=== PATIENT | female | born 1990 | race Caucasian/White ===

== ENCOUNTER 2019-10-14 11:16 | Inpatient (IN) | payer MEDICAID, OTHER ==
[~2019-10-14] VITALS: Ht 154.9 cm; Wt 50.4 kg
[2019-10-14 22:52] VITALS: BP 102/59
[2019-10-15 06:05] VITALS: BP 116/59
[2019-10-15] MEDS ORDERED: ONDANSETRON HCL 4 MG TABLET PO PRN (07:00)
[2019-10-15] MEDS ORDERED: DOCUSATE SODIUM 100 MG CAPSULE PO PRN (07:00)
[2019-10-15] MEDS ORDERED: CloNIDine HCL 0.1 MG TABLET PO PRN (07:00)
[2019-10-15] MEDS ORDERED: LOPERAMIDE HCL 2 MG CAPSULE PO PRN (07:00)
[2019-10-15] MEDS ORDERED: ACETAMINOPHEN 325 MG TABLET PO PRN (07:00)
[2019-10-15] MEDS ORDERED: PETROLATUM,WHITE 28 GM JELLY TP PRN (07:00)
[2019-10-15] MEDS ORDERED: MAGNESIUM HYDROXIDE SUSPENSION 30 ML UDCUP PO PRN (07:00)
[2019-10-15] MEDS ORDERED: GuaiFENesin/D-METHORPHAN [SUGAR-FREE] 200-20MG/10 ML SYRUP UDCUP PO PRN (07:00)
[2019-10-15] MEDS ORDERED: MAG HYDROX/AL HYDROX/SIMETH ES 30 ML SUSPENSION UDCUP PO PRN (07:00)
[2019-10-15] MEDS ORDERED: ALBUTEROL SULFATE HFA 90 MCG/PUFF 8 GM INHALER IH PRN (07:00)
[2019-10-15] MEDS ORDERED: NICOTINE 14 MG/24 HOUR PATCH TD PRN (07:00)
[2019-10-15 16:22] VITALS: BP 134/67
[2019-10-15] MEDS: QUEtiapine FUMARATE 100 MG TABLET PO SCH (21:00)
[2019-10-16 05:18] VITALS: BP 123/60
[2019-10-16 08:24] VITALS: BP 120/66
[2019-10-16] MEDS ORDERED: LORazepam 2 MG/ML VIAL ONE (11:43)
[2019-10-16] MEDS ORDERED: DiphenhydrAMINE HCL 50 MG/ML VIAL ONE (11:44)
[2019-10-16] MEDS ORDERED: HALOPERIDOL LACTATE 5 MG/ML VIAL ONE (11:44)
[2019-10-16] MEDS ORDERED: LORazepam 2 MG/ML VIAL IM ONE (14:30)
[2019-10-16] MEDS ORDERED: DiphenhydrAMINE HCL 50 MG/ML VIAL IM ONE (14:30)
[2019-10-16] MEDS ORDERED: HALOPERIDOL LACTATE 5 MG/ML VIAL IM ONE (14:30)
[2019-10-16 16:20] VITALS: BP 118/68
[2019-10-16] MEDS: QUEtiapine FUMARATE 100 MG TABLET PO SCH (21:00)
[2019-10-17 01:52] VITALS: BP 114/69
[2019-10-17 16:59] VITALS: BP 107/76
[2019-10-17] MEDS: QUEtiapine FUMARATE 100 MG TABLET PO SCH (21:00)
[2019-10-18 06:25] VITALS: BP 100/70
[2019-10-18 08:10] VITALS: BP 105/66
[2019-10-18 16:01] VITALS: BP 118/90
[2019-10-18] MEDS: QUEtiapine FUMARATE 100 MG TABLET PO SCH (20:17)
[2019-10-19 04:30] VITALS: BP 102/88
[2019-10-19] MEDS: QUEtiapine FUMARATE 100 MG TABLET PO SCH ×2 (08:45→20:34)
[2019-10-19 17:09] VITALS: BP 110/65
[2019-10-20 05:09] VITALS: BP 118/67
[2019-10-20 08:18] VITALS: BP 113/68
[2019-10-20] MEDS: LORazepam 2 MG TABLET PO PRN (08:20)
[2019-10-20] MEDS: QUEtiapine FUMARATE 100 MG TABLET PO SCH ×2 (08:20→21:03)
[2019-10-20 16:12] VITALS: BP 103/60
[2019-10-21] MEDS: LORazepam 2 MG TABLET PO PRN (09:30)
[2019-10-21] MEDS: QUEtiapine FUMARATE 100 MG TABLET PO SCH ×2 (09:30→21:28)
[2019-10-21] MEDS: IBUPROFEN 400 MG TABLET PO PRN (10:08)
[2019-10-21] MEDS ORDERED: DiphenhydrAMINE HCL 50 MG/ML VIAL ONE (16:48)
[2019-10-21] MEDS ORDERED: HALOPERIDOL LACTATE 5 MG/ML VIAL ONE (16:48)
[2019-10-21] MEDS ORDERED: LORazepam 2 MG/ML VIAL ONE (16:48)
[2019-10-21] MEDS ORDERED: LORazepam 2 MG/ML VIAL IM ONE (17:00)
[2019-10-21] MEDS ORDERED: HALOPERIDOL LACTATE 5 MG/ML VIAL IM ONE (17:00)
[2019-10-21] MEDS ORDERED: DiphenhydrAMINE HCL 50 MG/ML VIAL IM ONE (17:00)
[2019-10-22] MEDS: QUEtiapine FUMARATE 100 MG TABLET PO SCH ×2 (09:33→21:06)
[2019-10-23] MEDS: QUEtiapine FUMARATE 100 MG TABLET PO SCH ×3 (08:47→21:07)
[2019-10-23] MEDS: LORazepam 2 MG TABLET PO PRN (08:55)
[2019-10-23 16:43] VITALS: BP 109/61
[2019-10-23] MEDS: ZOLPIDEM TARTRATE 10 MG TABLET PO PRN (21:07)
[2019-10-24 01:54] VITALS: BP 100/69
[2019-10-24] MEDS ORDERED: LORazepam 2 MG/ML VIAL ONE (02:33)
[2019-10-24] MEDS ORDERED: DiphenhydrAMINE HCL 50 MG/ML VIAL ONE (02:34)
[2019-10-24] MEDS ORDERED: HALOPERIDOL LACTATE 5 MG/ML VIAL ONE (02:34)
[2019-10-24] MEDS ORDERED: LORazepam 2 MG/ML VIAL IM ONE (02:45)
[2019-10-24] MEDS ORDERED: DiphenhydrAMINE HCL 50 MG/ML VIAL IM ONE (02:45)
[2019-10-24] MEDS ORDERED: HALOPERIDOL LACTATE 5 MG/ML VIAL IM ONE (02:45)
[2019-10-24] MEDS: QUEtiapine FUMARATE 100 MG TABLET PO SCH ×2 (08:24→20:16)
[2019-10-24] MEDS: LORazepam 2 MG TABLET PO PRN (08:24)
[2019-10-25] MEDS: LORazepam 2 MG TABLET PO PRN (10:04)
[2019-10-25] MEDS: QUEtiapine FUMARATE 100 MG TABLET PO SCH (10:04)
[2019-10-25 10:18] VITALS: BP 116/82
[2019-10-25] MEDS: IBUPROFEN 400 MG TABLET PO PRN (10:18)
[2019-10-25] MEDS: QUEtiapine FUMARATE 200 MG TABLET PO SCH (20:03)
[2019-10-26 04:08] VITALS: BP 104/64
[2019-10-26] MEDS: HALOPERIDOL 5 MG TABLET PO PRN (04:32)
[2019-10-26] MEDS: QUEtiapine FUMARATE 200 MG TABLET PO SCH ×2 (10:08→20:08)
[2019-10-26] MEDS: LORazepam 2 MG TABLET PO PRN ×2 (10:08→16:27)
[2019-10-26 16:48] VITALS: BP 107/60
[2019-10-27] MEDS: QUEtiapine FUMARATE 200 MG TABLET PO SCH ×2 (08:44→20:12)
[2019-10-27] MEDS: LORazepam 2 MG TABLET PO PRN ×2 (08:44→17:16)
[2019-10-27 16:10] VITALS: BP 111/83
[2019-10-27] MEDS: ZOLPIDEM TARTRATE 10 MG TABLET PO PRN (23:10)
[2019-10-28] MEDS: QUEtiapine FUMARATE 200 MG TABLET PO SCH ×2 (08:59→20:11)
[2019-10-28] MEDS: LORazepam 2 MG TABLET PO PRN ×2 (08:59→15:58)
[2019-10-28 16:33] VITALS: BP 98/52
[2019-10-28] MEDS: HALOPERIDOL 5 MG TABLET PO PRN (17:33)
[2019-10-28] MEDS: ZOLPIDEM TARTRATE 10 MG TABLET PO PRN (21:08)
[2019-10-29 03:52] VITALS: BP 101/62
[2019-10-29] MEDS: QUEtiapine FUMARATE 200 MG TABLET PO SCH ×2 (08:17→20:25)
[2019-10-29 16:10] VITALS: BP 112/57
[2019-10-29] MEDS: LORazepam 2 MG TABLET PO PRN (17:23)
[2019-10-29] MEDS: HALOPERIDOL 5 MG TABLET PO PRN (17:23)
[2019-10-30 04:01] VITALS: BP 110/60
[2019-10-30] MEDS: QUEtiapine FUMARATE 200 MG TABLET PO SCH ×2 (10:23→21:00)
[2019-10-30] MEDS: LORazepam 2 MG TABLET PO PRN (10:23)
[2019-10-30] MEDS: IBUPROFEN 400 MG TABLET PO PRN (17:55)
[2019-10-30] MEDS: DIVALPROEX SODIUM 500 MG DR TABLET PO SCH (21:00)
[2019-10-31 01:12] VITALS: BP 114/70
[2019-10-31] MEDS ORDERED: DiphenhydrAMINE HCL 50 MG/ML VIAL IM ONE (06:30)
[2019-10-31] MEDS ORDERED: HALOPERIDOL LACTATE 5 MG/ML VIAL IM ONE (06:30)
[2019-10-31] MEDS ORDERED: LORazepam 2 MG/ML VIAL IM ONE (06:30)
[2019-10-31] MEDS: DIVALPROEX SODIUM 500 MG DR TABLET PO SCH ×2 (09:00→21:00)
[2019-10-31] MEDS: QUEtiapine FUMARATE 200 MG TABLET PO SCH ×2 (09:00→21:45)
[2019-10-31 17:50] VITALS: BP 97/61
[2019-11-01 04:01] VITALS: BP 102/64
[2019-11-01] MEDS: QUEtiapine FUMARATE 200 MG TABLET PO SCH ×2 (10:06→20:34)
[2019-11-01] MEDS: DIVALPROEX SODIUM 500 MG DR TABLET PO SCH ×2 (10:06→20:33)
[2019-11-01] MEDS: LORazepam 2 MG TABLET PO PRN (10:06)
[2019-11-01 16:28] VITALS: BP 99/60
[2019-11-02 01:17] VITALS: BP 109/68
[2019-11-02] MEDS: DIVALPROEX SODIUM 500 MG DR TABLET PO SCH ×3 (09:00→20:20)
[2019-11-02] MEDS: QUEtiapine FUMARATE 200 MG TABLET PO SCH ×2 (09:59→20:21)
[2019-11-02] MEDS: LORazepam 2 MG TABLET PO PRN ×2 (12:33→17:13)
[2019-11-02 16:21] VITALS: BP 106/71
[2019-11-02] MEDS: ZOLPIDEM TARTRATE 10 MG TABLET PO PRN (20:21)
[2019-11-03 00:41] VITALS: BP 108/65
[2019-11-03] MEDS: QUEtiapine FUMARATE 200 MG TABLET PO SCH ×2 (08:29→20:05)
[2019-11-03] MEDS: DIVALPROEX SODIUM 500 MG DR TABLET PO SCH ×2 (08:30→20:06)
[2019-11-03] MEDS: LORazepam 2 MG TABLET PO PRN ×3 (08:32→18:44)
[2019-11-03 16:05] VITALS: BP 100/60
[2019-11-04 01:03] VITALS: BP 103/61
[2019-11-04 08:04] VITALS: BP 108/77
[2019-11-04] MEDS: LORazepam 2 MG TABLET PO PRN ×2 (09:45→14:54)
[2019-11-04] MEDS: DIVALPROEX SODIUM 500 MG DR TABLET PO SCH ×2 (09:45→20:19)
[2019-11-04] MEDS: QUEtiapine FUMARATE 200 MG TABLET PO SCH ×2 (09:45→20:19)
[2019-11-04 16:33] VITALS: BP 129/68
[2019-11-04] MEDS: ZOLPIDEM TARTRATE 10 MG TABLET PO PRN (20:19)
[2019-11-05] MEDS: LORazepam 2 MG TABLET PO PRN ×3 (00:46→16:30)
[2019-11-05 03:17] VITALS: BP 117/68
[2019-11-05 07:26] LABS: ANION GAP 4 mmol/L (8-16); CALCIUM, TOTAL 9.1 mg/dL (8.8-10.5); CARBON DIOXIDE 32 mmol/L (22-29); CHLORIDE 104 mmol/L (98-107); GLOMERULAR FILTR. RATE CALC > 60 mL/min (>60); GLUCOSE,RANDOM 106 mg/dL (70-110); POTASSIUM 4.5 mmol/L (3.5-5.1); SODIUM SERUM 140 mmol/L (136-145); UREA NITROGEN, BLOOD 16 mg/dL (7-18); VALPROIC ACID 53 mcg/mL (50-100)
[2019-11-05 08:12] VITALS: BP 105/74
[2019-11-05] MEDS: QUEtiapine FUMARATE 200 MG TABLET PO SCH ×2 (10:04→20:32)
[2019-11-05] MEDS: DIVALPROEX SODIUM 500 MG DR TABLET PO SCH ×2 (10:04→20:32)
[2019-11-05 16:05] VITALS: BP 110/70
[2019-11-05] MEDS: ZOLPIDEM TARTRATE 10 MG TABLET PO PRN (20:33)
[2019-11-06 00:40] VITALS: BP 105/86
[2019-11-06 08:09] VITALS: BP 103/69
[2019-11-06] MEDS: LORazepam 2 MG TABLET PO PRN ×3 (08:47→19:29)
[2019-11-06] MEDS: QUEtiapine FUMARATE 200 MG TABLET PO SCH ×2 (08:47→20:58)
[2019-11-06] MEDS: DIVALPROEX SODIUM 500 MG DR TABLET PO SCH ×2 (08:47→20:58)
[2019-11-06 17:41] VITALS: BP 123/73
[2019-11-06] MEDS: HALOPERIDOL 5 MG TABLET PO PRN (18:46)
[2019-11-07] MEDS: QUEtiapine FUMARATE 200 MG TABLET PO SCH ×2 (08:36→20:14)
[2019-11-07] MEDS: LORazepam 2 MG TABLET PO PRN ×2 (08:36→16:20)
[2019-11-07] MEDS: DIVALPROEX SODIUM 500 MG DR TABLET PO SCH ×2 (08:36→20:14)
[2019-11-07] MEDS: ZOLPIDEM TARTRATE 10 MG TABLET PO PRN (22:08)
[2019-11-08 01:23] VITALS: BP 110/64
[2019-11-08] MEDS ORDERED: DIVA-112 PO (04:03)
[2019-11-08] MEDS ORDERED: QUET200T PO (04:04)
== END 2019-11-08 07:30 | disposition home or self-care (01) | DRG 885 ==
LOC: EMS 11:19 → B3A 21:00
DX: F20.0 Paranoid schizophrenia (principal); R45.851 Suicidal ideations; F10.10 Alcohol abuse, uncomplicated; F17.200 Nicotine dependence, unspecified, uncomplicated; I95.9 Hypotension, unspecified; J30.2 Other seasonal allergic rhinitis; Z59.0 Homelessness; Z79.899 Other long term (current) drug therapy
CPT/HCPCS: J1200; J1630; J2060